=== PATIENT | female | born 1955 | race Caucasian/White ===

== ENCOUNTER → 2018-07-26 | Outpatient (CLI) | payer BC ==
--- NOTE | 2018-07-26 17:52 | CONS ---
Date/Time of Note Date/Time of Note DATE: 07/26/18 TIME: 17:39 Assessment/Plan Assessment/Plan Hospital Course 62-year-old female 9 days status post left tox impacted femoral neck fracture. Her pain has significantly improved since her original injury. She is able to move her hip with minimal pain. This demonstrates that the fracture is relatively more stable than the average valgus impacted femoral neck fracture. Generally very aggressive and like to place percutaneous screws in order to prevent further displacement. However given the combination of the stability of this fracture along with the patient's multiple medical problems and concerns for surgery complications from surgery I think it is reasonable to treat this nonoperatively with strict nonweightbearing. I asked her to avoid hip flexion and rotation of her hip as much as she can. Patient needs to avoid falls or being hit or knocked over by anyone or anything. She will need additional help at home to take care of herself during this time. I reviewed the benefits and risks of the surgery with her at length including the risk of displacement which would require at the minimum a hemiarthroplasty. She would like to proceed with nonoperative treatment. She will need to be followed on a weekly basis with new x-rays for at least the first 6 weeks. If she has an increase in pain or a fall she is to return to clinic immediately or to the emergency department at [facility] where I will continue my evaluation and treatment. Follow-up 1 week with x-rays. 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 She has multiple medical problems including chronic neurological Lyme disease, Marcos's disease. She fell on 07/17/2018 when a dog knocked her over and she fell on her right side. However she had severe pain on her left side. She is unable to get up and bear weight. She is able to get home and use crutches to ambulate. Over the course of weeks she continued to have pain in the groin although it did improve. She went to the urgent care this weekend on the where x-rays were taken and she was diagnosed with a valgus impacted left femoral neck fracture. The patient is unable to tell me her pain level but it has significantly improved. She has not even taken Tylenol over the last couple days. She denies numbness and tingling. She does have back pain history of back surgery. She is very hesitant and concerned abo ut surgery given previous experiences and complications from surgery from her other chronic medical problems. She has been functioning alone at home with crutches able to get in and out of the shower bathe and dress herself. Rest makes her pain better. Patient denies fever, chills, shortness of breath, chest pain, nausea/vomiting, constipation, diarrhea, numbness, and tingling. Past Medical History Chronic neurological Lyme disease Presto's disease Hearing loss Osteoporosis Diarrhea Past Surgical History Neurosurgery Hysterectomy Appendectomy Lumbar spine fusion Family History Significant Family History: no pertinent family hx Social History Alcohol Use: none Smoking Status: Former smoker Drug Use: none Exam/Review of Systems Vital Signs Vitals Weight: 95 pounds Height: 5 foot 1 inch Heart Rate: 121 Blood Pressure: 150/70 Exam General: Awake, alert, anxious, in no acute distress, pleasant and cooperative Heart: regular rhythm Lungs: breathing comfortably, no tachypnea or dyspnea Musculoskeletal: Left hip Well developed thin female in no apparent distress. Patient does have some groin pain to range of motion of the hip. Patient demonstrated that she is able to flex and externally rotate her hip to take her shoe on and off with minimal pain. No external rotation deformity no leg length discrepancy. Skin was intact throughout both lower extremities. Sensation intact to light touch in a sural, saphenous, deep peroneal, superficial peroneal, medial and lateral plantar nerve distribution. Neurovascular exam showed 5/5 strength in the abductors, quads, EHL/tibialis anterior/gastroc. Normal and symmetrical pulses were palpated in both the dorsalis pedis and posterior tibial arteries. There is no sign of venous stasis. Imaging Imaging AP pelvis, AP left hip, lateral left hip obtained from the urgent care on 07/24/2018 personally reviewed today by myself. Valgus impacted left femoral neck fracture. Osteopenia. JANETTE WEN MD Jul 26, 2018 17:51
== END | disposition home or self-care (01) ==
LOC: HKI 10:10
PROVIDERS: ATTEND Orthopaedic Surgery Adult Reconstructive Orthopaedic Surgery
DX: M25.552 Pain in left hip (principal); S72.002D Fracture of unspecified part of neck of left femur, subsequent encounter for closed fracture with routine healing; X58.XXXD Exposure to other specified factors, subsequent encounter; Z90.710 Acquired absence of both cervix and uterus; Z98.1 Arthrodesis status; Z87.891 Personal history of nicotine dependence
CPT/HCPCS: G0463

== ENCOUNTER → 2018-08-26 | Outpatient (CLI) | payer BC ==
--- NOTE | 2018-08-26 12:50 | CONS ---
Consult Date/Type/Reason Admit Date/Time Initial Consult Date Date/Time of Note DATE: 08/26/18 TIME: 12:47 Subjective 62-year-old female following up today for nonoperative treatment of valgus impacted left femoral neck fracture. Overall she is doing very well. She denies any pain. She is remained nonweightbearing as instructed. She does note some mild left foot swelling. Denies any trauma. Denies any pain. Denies any calf swelling or pain. Otherwise no new complaints or issues. Objective Vitals Weight: 97 pounds Height: 5 foot 1 inches Temperature: 90.4 Heart Rate: 95 Blood Pressure: 122/59 Respiratory Rate: 12 Exam General: Awake, alert, anxious, in no acute distress, pleasant and cooperative Heart: regular rhythm Lungs: breathing comfortably, no tachypnea or dyspnea Musculoskeletal: Left hip Well developed thin female in no apparent distress. No external rotation deformity no leg length discrepancy. Skin was intact throughout both lower extremities. Sensation intact to light touch in a sural, saphenous, deep peroneal, superficial peroneal, medial and lateral plantar nerve distribution. Neurovascular exam showed 5/5 strength in the abductors, quads, EHL/tibialis anterior/gastroc. Normal and symmetrical pulses were palpated in both the dorsalis pedis and posterior tibial arteries. There is no sign of venous stasis. Results/Medications Imaging Results/Medications Imaging AP pelvis, AP left hip, lateral left hip obtained in clinic personally reviewed by myself today. These were compared to x-rays taken 2 weeks prior. Valgus i mpacted left transcervical femoral neck fracture with no interval displacement or rotation. Osteopenia. Assessment/Plan Hospital Course (Demo Recall) 62-year-old female with multiple medical problems including chronic neurological Lyme disease. She is 6 weeks status post left valgus impacted femoral neck fracture. She is being treated nonoperatively. X-rays today are stable with no change. Patient symptoms are improved. She denies any pain. She is healing well clinically. Plan: Patient to remain strictly nonweightbearing left lower extremity Encouraged patient to eat a healthy diet and include supplementation for calcium and vitamin D Patient to follow-up in 4 weeks for x-rays. If those x-rays are stable and look good we will likely progress patient to 50% weightbearing with a follow-up 2 weeks after that. JANETTE WEN MD Aug 26, 2018 12:50
--- NOTE | 2018-08-26 16:48 | RADRPT ---
PROCEDURE: XR Left hip and pelvis. CLINICAL INDICATION: Left hip pain and pelvic pain. TECHNIQUE: 3 views. Frontal pelvis. Frontal and lateral left hip. COMPARISON: 08/12/2018. FINDINGS: There is a mildly displaced subcapital fracture of the left hip, similar to the prior study. There is no other fracture and there is no dislocation. The soft tissues are normal. Articular surfaces are intact. There is no lytic or blastic lesion. There has been prior lower lumbar spine surgery with pedicle screws and connecting rods. IMPRESSION: 1. Mildly displaced subcapital fracture of the left hip, unchanged. 2. Prior lower lumbar spine surgery. 3. Otherwise unremarkable images of the pelvis and left hip.. RPTAT: QQ .Richard Gonzalez MD, MD Date Time Electronically viewed and signed by .Richard Gonzalez MD, on 08/26/2018 16:48 .R/
== END | disposition home or self-care (01) ==
LOC: HKI 09:06
PROVIDERS: ATTEND Orthopaedic Surgery Adult Reconstructive Orthopaedic Surgery
DX: S72.002D Fracture of unspecified part of neck of left femur, subsequent encounter for closed fracture with routine healing (principal); X58.XXXD Exposure to other specified factors, subsequent encounter
CPT/HCPCS: 73502; G0463

== ENCOUNTER → 2018-09-29 | Outpatient (CLI) | payer BC ==
--- NOTE | 2018-09-29 13:54 | CONS ---
Consult Date/Type/Reason Admit Date/Time Initial Consult Date Date/Time of Note DATE: 09/29/18 TIME: 13:50 Subjective 60-year-old female follows up today for left hip fracture. She is now 10 weeks status post valgus impacted left hip fracture. She has been treated nonoperatively. She has remained nonweightbearing as instructed. In the interim she did hurt her left foot. She did see a foot and ankle surgeon who diagnosed her with a severe sprain. She did not discuss with him her weightbearing status in regards to the foot. States her hip pain is significantly better although she does have some mild groin pain at times. States her foot pain is so severe she may not be able to bear 50% weightbearing which was the original plan for today. Denies numbness and tingling. Objective Exam General: Awake, alert, anxious, in no acute distress, pleasant and cooperative Heart: regular rhythm Lungs: breathing comfortably, no tachypnea or dyspnea Musculoskeletal: Left hip Well developed thin female in no apparent distress. No external rotation deformity no leg length discrepancy. minimal pain to active and passive ROM. Skin was intact throughout both lower extremities. Sensation intact to light touch in a sural, saphenous, deep peroneal, superficial peroneal, medial and lateral plantar nerve distribution. Neurovascular exam showed 5/5 strength in the abductors, quads, EHL/tibialis anterior/gastroc. Normal and symmetrical pulses were palpated in both the dorsalis pedis and posterior tibial arteries. There is no sign of venous stasis. Results/Medications Imaging Results/Medications Imaging AP pelvis, AP left hip, lateral left hip obtained in clinic personally reviewed by myself today. These were compared to x-rays taken 4 weeks prior. Valgus impacted left transcervical femoral neck fracture with no interval displacement or rotation. Osteopenia. Assessment/Plan Hospital Course (Demo Recall) 62-year-old female with multiple medical problems including chronic neurological Lyme disease. She is 10 weeks status post left valgus impacted femoral neck fracture. She is being treated nonoperatively. X-rays today are stable with no change. Patient symptoms are improved. She denies any pain. She is healing well clinically. At this stage I would ideally like her to be 50% weightbearing and take new x-rays in 2 weeks to make sure there has been no change in progress to weightbearing as tolerated. However secondary to her severe left foot/ankle sprain she is unable to bear 50% weight. Therefore I have instructed her that when she is able to bear 50% weight she should return to clinic after doing so for about 1 week at minimum to about 2 weeks for new x-rays. If at that time x- rays are good she can weight-bear as tolerated. JANETTE WEN MD Sep 29, 2018 13:54
--- NOTE | 2018-09-29 22:40 | RADRPT ---
PROCEDURE: XR Left hip and pelvis. CLINICAL INDICATION: Left hip pain and pelvic pain. TECHNIQUE: 3 views. Frontal pelvis. Frontal and lateral left hip. COMPARISON: 08/26/2018. FINDINGS: There is a mildly displaced subcapital fracture of the left hip, similar to the prior study. There is no other fracture and there is no dislocation. The soft tissues are normal. Articular surfaces are intact. There is no lytic or blastic lesion. There has been prior lower lumbar spine surgery with pedicle screws and connecting rods. IMPRESSION: 1. Mildly displaced subcapital fracture of the left hip, unchanged. 2. Prior lower lumbar spine surgery. 3. Otherwise unremarkable images of the pelvis and left hip. RPTAT: QQ .Richard Gonzalez MD, MD Date Time Electronically viewed and signed by .Richard Gonzalez MD, on 09/29/2018 22:40 .R/
== END | disposition home or self-care (01) ==
LOC: HKI 09:37
PROVIDERS: ATTEND Orthopaedic Surgery Adult Reconstructive Orthopaedic Surgery
DX: S72.002D Fracture of unspecified part of neck of left femur, subsequent encounter for closed fracture with routine healing (principal); X58.XXXD Exposure to other specified factors, subsequent encounter
CPT/HCPCS: 73502; G0463

== ENCOUNTER → 2018-10-20 | Outpatient (CLI) | payer BC ==
--- NOTE | 2018-10-20 18:00 | CONS ---
Consult Date/Type/Reason Admit Date/Time Initial Consult Date Date/Time of Note DATE: 10/20/18 TIME: 17:57 Subjective 60-year-old female follows up today for left hip fracture. She is now 13 weeks status post valgus impacted left hip fracture. She has been treated nonoperatively. Her foot is much improved since last visit. She has been weightbearing 25-50% on the left lower extremity. She has only mild groin pain with excessive use and activity. She did have one day where she overused her hip and felt the pain the next day but that has now returned to baseline. Objective Vitals Weight: 100 pound Height: 5 foot 1 inches Temperature: 98.2 Heart Rate: 08/06/2006 Blood Pressure: 162/66 Respiratory Rate: 14 Exam General: Awake, alert, anxious, in no acute distress, pleasant and cooperative Heart: regular rhythm Lungs: breathing comfortably, no tachypnea or dyspnea Musculoskeletal: Left hip Well developed thin female in no apparent distress. No external rotation deformity no leg length discrepancy. No pain to active and passive ROM. Skin was intact throughout both lower extremities. Sensation intact to light touch in a sural, saphenous, deep peroneal, superficial peroneal, medial and lateral plantar nerve distribution. Neurovascular exam showed 5/5 strength in the abductors, quads, EHL/tibialis anterior/gastroc. Normal and symmetrical pulses were palpated in both the dorsalis pedis and posterior tibial arteries. There is no sign of venous stasis. Results/Medications Imaging AP pelvis, AP left hip, lateral left hip obtained in clinic personally reviewed by myself today. These were compared to x-rays taken 3 weeks prior. Valgus impacted left transcervical femoral neck fracture with no interval displacement or rotation. Fracture is healed. Best visualized on lateral hip x-ray. Osteopenia. Assessment/Plan Hospital Course (Demo Recall) 63-year-old female with multiple medical problems including chronic neurological Lyme disease. She is 13 weeks status post left valgus impacted femoral neck fracture. She is being treated nonoperatively. X-rays today are stable with no change in the fracture is healed. Patient symptoms are improved. She denies any pain. She is healing well clinically. At this stage I would ideally like her to begin weight-bear as tolerated left lower extremity. I like to see her in 6 weeks with new x-rays. JANETTE WEN MD Oct 20, 2018 18:00
--- NOTE | 2018-10-22 06:02 | RADRPT ---
PROCEDURE: XR pelvis and left hip. CLINICAL INDICATION: PAIN TECHNIQUE: AP pelvis, AP and frog lateral views of the left hip were performed. COMPARISON: HIP 09/29/2018 FINDINGS: The osseous mineralization is decreased. The left subcapital hip fracture is unchanged. The hip joints are normal. Evaluation of the sacrum and iliac wings is limited due to overlying bowel gas. There is fusion hardware at L5-S1. IMPRESSION: Osteopenia. Unchanged subcapital left hip fracture. [facility] Physician Bc Date Time Electronically viewed and signed by Brigitte Brian Physician on 10/22/2018 06:01 NIEVES/
== END | disposition home or self-care (01) ==
LOC: HKI 14:23
PROVIDERS: ATTEND Orthopaedic Surgery Adult Reconstructive Orthopaedic Surgery
DX: S72.002A Fracture of unspecified part of neck of left femur, initial encounter for closed fracture (principal); X58.XXXA Exposure to other specified factors, initial encounter; Y92.89 Other specified places as the place of occurrence of the external cause
CPT/HCPCS: 73502; G0463

== ENCOUNTER → 2018-12-01 | Outpatient (CLI) | payer BC ==
--- NOTE | 2018-12-01 13:37 | CONS ---
Consult Date/Type/Reason Admit Date/Time Initial Consult Date Date/Time of Note DATE: 12/01/18 TIME: 13:34 Subjective 63-year-old female follows up today for months status post nonoperative treatment for left valgus impacted femoral neck fracture. She is doing well from that standpoint. She has minimal to no groin pain however she has not been putting full weight on the lower extremity secondary to continued foot and ankle issues which she is following up with an another physician for. She is also complaining of significant left knee pain. This is her main complaint today. Left knee pain has been ongoing issue for over a year and she had previous PRP injection one year ago which made her knee pain worse she said. 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 She had numerous knee injections back in the 70s while dancing. Denies mechanical issues. She would like to be able to walk and hike. Her pain is diffuse in the knee. It is 8/10. She is unable to take NSAIDs secondary to GI symptoms. Objective Vitals Blood pressure: 110/60 Pulse: 101 Exam General: Alert, oriented x3. No Acute Distress. Heart: Regular rate and rhythm. Lungs: No respiratory distress. No accessory muscle use. Musculoskeletal: Painless and fluid and near full range of motion of left hip. Left Knee This is a well developed female who is alert, oriented times three and in no apparent distress. Skin is intact over the left knee as well as the lower extremity with no abrasions, lacerations, or ulcerations. The patient is unable to bear weight secondary to ankle injury. There is pain on palpation of medial joint line. The patient demonstrates grinding anteriorly with ROM. Range of motion: 0 extension to approximately 120 degrees of flexion. Collateral ligament testing reveals no instability with varus or valgus stress at 0 and 30 degrees of flexion. Negative Shazia's and negative posterior drawer. Neurovascularly intact with 5/5 EHL/tibialis anterior/gastroc. Sensation intact to light touch in a sural, saphenous, deep peroneal, superficial peroneal, medial and lateral plantar nerve distribution. Palpable, symmetric dorsalis pedis and posterior tibial pulses in both lower extremities. Hip examination normal. Results/Medications Imaging The patient received a standard set of films today that were personally reviewed. Imaging included a standing bilateral knee AP, PA flexion, merchant views and a dedicated lateral of the affected knee: There is varus alignment of the knee. There is moderate loss of joint space medial compartment(s). There is minimal osteophyte formation. There is minimal subchondral sclerosis. There are subchondral cysts. Degenerative changes are most severe in the medial compartment(s) MRI imaging of the right knee from 11/02/2017 was personally reviewed: Demonstrates complex tear the posterior horn of the medial meniscus. The radial and oblique components. Degenerative changes in the medial compartment including defect of the medial femoral condyle with subchondral cyst and edema Assessment/Plan Hospital Course (Demo Recall) 63-year-old female 4 months status post nonoperative treatment for left valgus impacted femoral neck fracture. From the standpoint she is doing very well. X- rays are stable and show healed subcapital femoral neck fracture. Her current complaints today are her left knee and left ankle. She is following up with her foot and ankle surgeon who she has been seen for her ankle and foot pain. Regards her knee pain it has been long-standing. MRI over one year old does show osteoarthritis in the medial compartment as well as a complex medial meniscus tear. X-rays today shows moderate arthritis in the medial compartment. This time would like to continue conservative treatment for her left knee osteoarthritis. Plan: Follow-up for left knee steroid injection. From my standpoint she is allowed to weight-bear as tolerated in left lower extremity as long as her foot and ankle s urgeon allows weightbearing as tolerated. JANETTE WEN MD December 01, 2018 13:37
--- NOTE | 2018-12-01 23:17 | RADRPT ---
PROCEDURE: XR Knees. CLINICAL INDICATION: Bilateral knee pain. TECHNIQUE: Total of eight views. Weightbearing frontal, oblique, and lateral views of the both kne es. Patellar views of both knees. COMPARISON: No prior study is available for comparison. FINDINGS: There is no fracture or dislocation. The soft tissues are normal. There is diffuse osteopenia. There are mild to moderate degenerative changes of the knees with osteophytes and medial joint compar tment narrowing. There is no lytic or blastic lesion. There is no radiopaque foreign body. IMPRESSION: 1. Diffuse osteopenia. 2. Mild to moderate degenerative changes of both knees. 3. Otherwise unremarkable study. RPTAT: QQ .Richard Gonzalez MD, MD Date Time Electronically viewed and signed by .Richard Gonzalez MD, on 12/01/2018 23:17 .R/
--- NOTE | 2018-12-01 23:17 | RADRPT ---
PROCEDURE: XR Left hip and pelvis. CLINICAL INDICATION: Left hip pain and pelvic pain. TECHNIQUE: 3 views. Frontal pelvis. Frontal and lateral left hip. COMPARISON: 10/20/2018. FINDINGS: There is a healing left subcapital hip fracture with satisfactory alignment. There is no new fracture and there is no dislocation. The soft tissues are normal. Articular surfaces are intact. There is no lytic or blastic lesion. There has been prior lower lumbar spine surgery with pedicle screws and connecting rods at L5-S1. IMPRESSION: 1. Healing left subcapital hip fracture. 2. Prior lower lumbar spine surgery. 3. Otherwise unremarkable study. RPTAT: QQ .Richard Gonzalez MD, MD Date Time Electronically viewed and signed by .Richard Gonzalez MD, on 12/01/2018 23:16 .R/
== END | disposition home or self-care (01) ==
LOC: HKI 11:53
PROVIDERS: ATTEND Orthopaedic Surgery Adult Reconstructive Orthopaedic Surgery
DX: S72.002D Fracture of unspecified part of neck of left femur, subsequent encounter for closed fracture with routine healing (principal); X58.XXXD Exposure to other specified factors, subsequent encounter; M17.12 Unilateral primary osteoarthritis, left knee; M25.562 Pain in left knee; M25.572 Pain in left ankle and joints of left foot
CPT/HCPCS: 73502; 73564; G0463